=== PATIENT | male | born 1980 | race Caucasian/White ===

== ENCOUNTER 2017-03-28 20:16 | Emergency (ER) | payer BC ==
[2017-03-28 20:25] VITALS: BP 127/79
--- NOTE | 2017-03-28 20:38 | UC ---
Skin Complaint HPI - HPI Summary HPI Summary: The patient comes in today for: 1. Skin lesions Onset: three days ago. Palliative/Provocative: Nothing makes it better or worse. Quality: Itching at this time. Region: Upper back right and left--most lesions are on the upper right. Severity: 0/10 Time: Constant. Associated symptoms: Fever: None. Discharge: None. Event: He does not remember being bitten. * - History of Current Complaint Chief Complaint: [facility] Time Seen by Provider: 03/28/17 20:30 Stated Complaint: SKIN COMPLAINT Hx Obtained From: Patient - Allergy/Home Medications Allergies/Adverse Reactions: Allergies Allergy/AdvReac Type Severity Reaction Status Date / Time seasonal allergy sx Allergy Congestion Uncoded 03/28/17 20:25 Home Medications: Home Medications Cetirizine* [ZyrTEC 10 MG TAB*] 10 mg PO DAILY 03/28/17 [History Confirmed 03/28] Review of Systems Constitutional: Negative Skin: Rash Eyes: Negative ENT: Negative Respiratory: Negative Cardiovascular: Negative Gastrointestinal: Negative Genitourinary: Negative All Other Systems Reviewed And Are Negative: Yes PMH/Surg Hx/FS Hx/Imm Hx Previously Healthy: Yes Endocrine History Of: Denies: Diabetes, Thyroid Disease, Hyperthyroidism, Hypothyroidism, Dyslipidemia Cardiovascular History Of: Denies: Cardiac Disorders, Hypertension, Pacemaker/ICD, Myocardial Infarction , Congestive Heart Failure, Atrial Fibrillation, Deep Vein Thrombosis, Bleeding Disorders Respiratory History Of: Denies: COPD, Asthma, Bronchitis, Pneumonia, Pulmonary Embolism GI/ History Of: Denies: Gastroesophageal Reflux, Ulcer, Gastrointestinal Bleed, Gall Bladder Disease, Kidney Stones, Diverticulitis, Renal Disease, Urosepsis Neurological History Of: Denies: TIA, CVA, Dementia, Seizures, Migraine Psychological History Of: Denies: Anxiety, Depression, Bipolar Disorder, Schizophrenia, Post Traumatic Stress Disorder Cancer History Of: Denies: Lung Cancer, Colorectal Cancer, Breast Cancer, Prostate Cancer, Cervical Cancer Other History Of: Negative For: HIV, Hepatitis B, Hepatitis C, Anticoagulant Therapy - Surgical History Surgical History: Yes Surgery Procedure, Year, and Place: [id number]~ - Family History Known Family History: Positive: Hypertension Negative: Cardiac Disease - Social History Occupation: Employed Full-time Alcohol Use: Occasionally Substance Use Type: None Smoking Status (MU): Never Smoked Tobacco Physical Exam Triage Information Reviewed: Yes Appearance: Well-Appearing, No Pain Distress, Well-Nourished Vital Signs: Initial Vital Signs Temp 97 F 03/28/17 20:19 Pulse 97 03/28/17 20:19 Resp 20 03/28/17 20:19 BP 127/79 03/28/17 20:19 Pulse Ox 98 03/28/17 20:19 Vital Signs Reviewed: Yes Eyes: Positive: Conjunctiva Clear. Negative: Discharge ENT: Positive: Hearing grossly normal. Negative: Pharyngeal erythema, Nasal congestion, Nasal drainage, TM bulging, TM dull, TM red, Tonsillar swelling, Tonsillar exudate Dental: Negative: Gross Decay/Caries @, Dental Fracture @ Neck: Positive: Supple, Nontender, No Lymphadenopathy. Negative: Nuchal Rigidity Respiratory: Positive: Chest non-tender, Lungs clear, No respiratory distress, No accessory muscle use. Negative: Crackles, Wheezing Cardiovascular: Positive: RRR, No Murmur Abdomen Description: Positive: Nontender, No Organomegaly, Soft. Negative: Distended, Guarding Musculoskeletal: Positive: Strength Intact, ROM Intact, No Edema Neurological: Positive: Alert, Muscle Tone Normal Psychological: Positive: Age Appropriate Behavior, Consolable Skin: Positive: rashes - He has erythematous papules in a cluster, but no vesicles upper right back just off from the spine. There is also a single larger erythematous papule of the left upper back. Course/Dx - Course Course Of Treatment: Patient told of his treatment options. He was told that I don't think it is shingles as it is on both sides of the spine and only barely itchy--not burning. - Diagnoses Provider Diagnoses: Papular urticaria. Discharge - Discharge Plan Condition: Stable Disposition: HOME Patient Education Materials: Dermatitis (ED) Referrals: Kevin Pearl DO [Primary Care Provider] - 1 Week (Please see your primary care provider in about a week to see how well you are doing. If you get worse, please be seen sooner.)
== END 2017-03-28 20:52 | disposition home or self-care (01) ==
LOC: UCCORT 20:16
DX: L50.8 Other urticaria (principal)
CPT/HCPCS: 99212; G0463